=== PATIENT | male | born 1980 | race Caucasian/White ===

== ENCOUNTER 2020-09-19 14:10 | Emergency (ER) | payer OTHER ==
[2020-09-19] MEDS ORDERED: fentaNYL 100 MCG/2 ML SDV IVPUSH ONE ×2 (14:33→15:16)
[2020-09-19] MEDS ORDERED: Sodium Chloride 0.9% 10 ML Syringe FLUSH PRN (14:33)
--- NOTE | 2020-09-19 14:43 | EDM.PDOC ---
ED HPI GENERAL MEDICAL PROBLEM - General Chief Complaint: Upper Extremity Injury/Pain Stated Complaint: SHOULDER INJURY Time Seen by Provider: 09/19/20 14:21 Source of Information: Reports: Patient, RN Notes Reviewed History Limitations: Reports: No Limitations - History of Present Illness INITIAL COMMENTS - FREE TEXT/NARRATIVE: Patient is a 40-year-old male who presents to the ED for the evaluation of his right possible shoulder dislocation. Patient notes that he has a history of his shoulder going out, and this is the fifth time it happened in 6 months. He states he was bearing weight on his right shoulder today, when he felt a pop out of place. He notes that he can usually get it to go back in on his own, but he said to have been go to the clinic in the past have it put back in. He states he was unable to do that today. He notes this happened about 1 hour prior to arrival to the ER. He states there is quite a bit of pain, he is not having any numbness or tingling into his fingers but there is some duskiness of the fingers on the affected extremity at first glance. Patient denies any other sick-like symptoms, fever/chills, cough/shortness of breath, nausea/vomiting/diarrhea. Right Shoulder Pain Score (Numeric/FACES): 10 - Related Data Allergies Allergy/AdvReac Type Severity Reaction Status Date / Time No Known Allergies Allergy Verified 09/19/20 14:22 Home Meds: Home Meds . [No Known Home Meds] 09/19/20 [History] Past Medical History HEENT History: Reports: Impaired Vision Musculoskeletal History: Reports: Other (See Below) Other Musculoskeletal History: shoulder dislocation - Past Surgical History HEENT Surgical History: Reports: Oral Surgery Social & Family History - Family History Family Medical History: No Pertinent Family History - Tobacco Use Tobacco Use Status *Q: Current Every Day Tobacco User Years of Tobacco use: 25 Packs/Tins Daily: 0.5 - Caffeine Use Caffeine Use: Reports: Coffee - Recreational Drug Use Recreational Drug Use: Yes Drug Use in Last 12 Months: No Recreational Drug Type: Reports: Methamphetamine Recreational Drug Use Frequency: Not Used In Over 1 Year Review of Systems - Review of Systems Review Of Systems: Comprehensive ROS is negative, except as noted in HPI. ED EXAM, GENERAL - Physical Exam Exam: See Below Exam Limited By: No Limitations General Appearance: Alert, WD/WN, No Apparent Distress, Anxious (pt is in mild pain, but no distress at this time) Respiratory/Chest: No Respiratory Distress, Lungs Clear, Normal Breath Sounds, No Accessory Muscle Use, Chest Non-Tender Cardiovascular: Normal Peripheral Pulses, Regular Rate, Rhythm, No Murmur Peripheral Pulses: 2+: Radial (L), Radial (R) Extremities: Normal Capillary Refill, Limited Range of Motion (of right shoulder d/t dislocation. There is an obvious visible deformity noted) Neurological: Alert, Oriented, Normal Cognition, No Motor/Sensory Deficits Psychiatric: Normal Affect, Normal Mood Skin Exam: Warm, Dry, Intact, Normal Color, No Rash ED TRAUMA EXTREMITY PROCEDURES - Joint Reduction Right Shoulder Sedation: Other (conscious sedation; 2mg IV versed, 50mcg IV fentanyl, and 200mg IV propofol were used to achieve adequate reduction. the Propofol was administered by Dr. Etienne.) Pre-Procedure NV Status: Normal Post-Procedure NV Status: Normal Technique: Traction/Counter Traction Number of Attempts: 1 Post-Reduction Imaging: Completely Reduced Joint Reduction Complications: No Course - Vital Signs Last Recorded V/S: Last Vital Signs Temp 98.7 F 09/19/20 14:24 Pulse 81 09/19/20 16:15 Resp 16 09/19/20 16:15 BP 134/82 09/19/20 16:15 Pulse Ox 99 09/19/20 16:15 - Orders/Labs/Meds Orders: Active Orders 24 hr Category Date Time Status Peripheral IV Care [RC] . DIRECTED Care 09/19/20 14:34 Ordered Lactated Ringers [Ringers, Lactated] 1,000 ml Med 09/19/20 15:50 Active IV .BOLUS Sodium Chloride 0.9% [Saline Flush] Med 09/19/20 14:33 Active 10 ml FLUSH ASDIRECTED PRN DME for Discharge [COMM] Routine Oth 09/19/20 15:41 Ordered Peripheral IV Insertion Adult [OM.PC] Routine Oth 09/19/20 14:32 Ordered Medication Orders Lactated Ringer's (Ringers, Lactated) 1,000 mls @ 1,000 mls/hr IV .BOLUS ONE Stop: 09/19/20 16:49 Last Admin: 09/19/20 15:51 Dose: 1,000 mls/hr Documented by: YAN Sodium Chloride (Saline Flush) 10 ml FLUSH ASDIRECTED PRN PRN Reason: Keep Vein Open Last Admin: 09/19/20 14:53 Dose: 10 ml Documented by: YAN Meds: Medications Generic Name Dose Route Start Last Admin Trade Name Freq PRN Reason Stop Dose Admin Lactated Ringer's 1,000 mls @ 1,000 mls/hr 09/19/20 15:50 09/19/20 15:51 Ringers, Lactated IV 09/19/20 16:49 1,000 mls/hr .BOLUS ONE Administration Sodium Chloride 10 ml 09/19/20 14:33 09/19/20 14:53 Saline Flush FLUSH 10 ml ASDIRECTED PRN Administration Keep Vein Open Discontinued Medications Generic Name Dose Route Start Last Admin Trade Name Freq PRN Reason Stop Dose Admin Fentanyl 25 mcg 09/19/20 14:33 09/19/20 14:53 Sublimaze IVPUSH 09/19/20 14:34 25 mcg ONETIME ONE Administration Fentanyl 25 mcg 09/19/20 15:16 09/19/20 15:35 Sublimaze IVPUSH 09/19/20 15:17 25 mcg ONETIME ONE Administration Lactated Ringer's Confirm 09/19/20 15:47 09/19/20 15:50 Ringers, Lactated Administered 09/19/20 15:48 Not Given Dose 1,000 mls @ as directed .ROUTE .STK-MED ONE Midazolam HCl 2 mg 09/19/20 15:16 09/19/20 15:37 Versed 1 Mg/Ml IVPUSH 09/19/20 15:17 2 mg ONETIME ONE Administration Propofol 150 mg 09/19/20 15:41 09/19/20 15:47 Diprivan 20 Ml IVPUSH 09/19/20 15:42 200 mg ONETIME ONE Administration - Re-Assessments/Exams Free Text/Narrative Re-Assessment/Exam: 09/19/20 14:40 Patient presents to the ED for the evaluation of his possible shoulder dislocation. Have ordered x-rays for today's purposes, however there is a visual deformity which is highly suggestive of a dislocation. The patient was insistent on trying to reduce the joint with no medications, I did do one attempt at external rotation, felt and heard a mild clunk, I think he may have partially put this back into place, but the patient states that it still does not feel as if it is in place. There is still a slight deformity noted after the first initial attempt. 09/19/20 14:50 The patient's x-ray was obtained, demonstrates an anterior dislocation of the shoulder joint, dislocation of the AC joint, but no evidence of acute fracture. There is soft tissue swelling noted. 09/19/20 16:19 The patient was able to tolerate the reduction, Dr. Etienne and I were successful in getting this back within the joint, radiology also states that there has been reduction of the previously noted right shoulder dislocation. Departure - Departure Time of Disposition: 16:21 Disposition: Home, Self-Care 01 Condition: Good Clinical Impression: Recurrent dislocation, right shoulder - Discharge Information *PRESCRIPTION DRUG MONITORING PROGRAM REVIEWED*: No *COPY OF PRESCRIPTION DRUG MONITORING REPORT IN PATIENT JOHANA: No Instructions: Recurrent Shoulder Laxity and Instability Rehab-SportsMed, Shoulder Dislocation, [id number] Referrals: PCP,None [Primary Care Provider] - Forms: ED Department Discharge Additional Instructions: You have been evaluated in the ED for your right shoulder dislocation. Your postreduction x-ray demonstrated a shoulder that was completely within joint at this time. Please use ice as tolerated to the affected area. You may elevate the affected area to provide further relief from swelling. You have been placed in a sling, please keep this in place as much as possible for at least 1 week. You may take Tylenol 500 mg or ibuprofen 600mg q6 hrs for pain relief. Please do so until you have a tolerable level of pain with activity. Do not exceed 4000mg Tylenol, Do not exceed 3200mg ibuprofen in a 24 hour time period. Please call Ortho for follow-up and further evaluation Dr. Malone is our orthopedic surgeon, his office number is [phone]. Please call and set up an appointment as soon as possible for further management. Please return to ED if your symptoms should change or worsen. Sepsis Event Note (ED) - Evaluation Sepsis Screening Result: No Definite Risk - Focused Exam Vital Signs: Vital Signs Temp Pulse Resp BP Pulse Ox 09/19/20 16:15 81 16 134/82 99 09/19/20 16:10 78 16 129/84 99 09/19/20 16:05 80 16 130/87 99 09/19/20 16:00 80 16 131/86 99 09/19/20 15:55 80 18 99 09/19/20 15:50 80 16 139/90 100 09/19/20 15:40 83 16 142/96 H 96 09/19/20 14:24 98.7 F 98 22 H 148/101 H 98 - My Orders Last 24 Hours: My Active Orders 09/19/20 14:32 Peripheral IV Insertion Adult [OM.PC] Routine 09/19/20 14:33 Sodium Chloride 0.9% [Saline Flush] 10 ml FLUSH ASDIRECTED PRN 09/19/20 14:34 Peripheral IV Care [RC] . DIRECTED 09/19/20 15:41 DME for Discharge [COMM] Routine 09/19/20 15:50 Lactated Ringers [Ringers, Lactated] 1,000 ml IV .BOLUS - Assessment/Plan Last 24 Hours: My Active Orders 09/19/20 14:32 Peripheral IV Insertion Adult [OM.PC] Routine 09/19/20 14:33 Sodium Chloride 0.9% [Saline Flush] 10 ml FLUSH ASDIRECTED PRN 09/19/20 14:34 Peripheral IV Care [RC] . DIRECTED 09/19/20 15:41 DME for Discharge [COMM] Routine 09/19/20 15:50 Lactated Ringers [Ringers, Lactated] 1,000 ml IV .BOLUS
--- NOTE | 2020-09-19 14:54 | CR ---
PROCEDURE INFORMATION: Exam: XR Right Shoulder Exam date and time: 09/19/2020 2:35 PM Age: 40 years old Clinical indication: Injury or trauma; Other: Dislocation; Severity not specified; Shoulder; Right; Injury date: 09/19/20 TECHNIQUE: Imaging protocol: XR Right shoulder. Views: 2 or more views. COMPARISON: No relevant prior studies available. FINDINGS: Bones/joints: Anterior dislocation of the shoulder is present. There is dislocation of the acromioclavicular joint. There is no evidence of acute fracture. Soft tissues: Soft tissue swelling is noted. IMPRESSION: 1. Anterior dislocation of the shoulder is present. 2. Dislocation of the acromioclavicular joint. 3. No evidence of acute fracture. 4. Soft tissue swelling is noted. Thank you for allowing us to participate in the care of your patient. Dictated and Authenticated by: Erik De La O DO 09/19/2020 3:42 PM Central Time ([place] & [place]) JOSE
[2020-09-19] MEDS ORDERED: Midazolam 1 MG/ML 2 ML SDV IVPUSH ONE (15:16)
[2020-09-19] MEDS ORDERED: Propofol 200 MG/20 ML SDV IVPUSH ONE (15:41)
[2020-09-19] MEDS ORDERED: Lactated Ringers 1,000 ML ONE (15:47)
[2020-09-19] MEDS ORDERED: Lactated Ringers 1,000 ML IV ONE (15:50)
--- NOTE | 2020-09-19 16:11 | CR ---
PROCEDURE INFORMATION: Exam: XR Right Shoulder Exam date and time: 09/19/2020 2:35 PM Age: 40 years old Clinical indication: Injury or trauma; Other: Dislocation; Severity not specified; Shoulder; Right; Injury date: 09/19/20 TECHNIQUE: Imaging protocol: XR Right shoulder. Views: 2 or more views. COMPARISON: No relevant prior studies available. FINDINGS: Bones/joints: Anterior dislocation of the shoulder is present. There is dislocation of the acromioclavicular joint. There is no evidence of acute fracture. Soft tissues: Soft tissue swelling is noted. IMPRESSION: 1. Anterior dislocation of the shoulder is present. 2. Dislocation of the acromioclavicular joint. 3. No evidence of acute fracture. 4. Soft tissue swelling is noted. Thank you for allowing us to participate in the care of your patient. Dictated and Authenticated by: Erik De L aO DO 09/19/2020 3:42 PM Central Time ([place] & [place]) JOSE
== END 2020-09-19 16:50 | disposition home or self-care (01) ==
LOC: JD.ED 14:10
DX: M24.411 Recurrent dislocation, right shoulder (principal); F17.210 Nicotine dependence, cigarettes, uncomplicated
CPT/HCPCS: 23650; 73020; 73030; 99152; 99153; 99283; J2250; J2704; J3010; J7120; 23655

== ENCOUNTER 2023-07-01 01:44 | Emergency (ER) | payer OTHER | END 2023-07-01 03:24 | LOC: JD.ED 01:44 | DX: F10.929 Alcohol use, unspecified with intoxication, unspecified (principal); F17.210 Nicotine dependence, cigarettes, uncomplicated | CPT/HCPCS: 99282; 99284 ==